=== PATIENT | male | born 1965 | race Caucasian/White ===

== ENCOUNTER 2016-07-21 20:46 | Emergency (ER) | payer MEDICAID ==
[2016-07-21] MEDS ORDERED: NS 1,000 ML IV ONE (20:52)
--- NOTE | 2016-07-21 20:54 | EDPHY ---
H & P HPI/ROS: HPI CHIEF COMPLAINT: Seizure from [facility] HISTORY OF PRESENT ILLNESS: This patient very pleasant 51-year-old male, significant past medical history for liver disease, has had paracentesis in the past and does take lactulose, lives at [facility], he presents emergency room by EMS after he had a witnessed generalized tonic-clonic seizure by staff there. According to EMS he had a witnessed generalized tonic-clonic seizure unclear exactly how long this lasted. After the seizure. The staff thought he was unresponsive with no pulse and not breathing. They decided to start CPR on him. They did 2 chest compressions and with each, chest compression he moaned. Past Medical History: Liver disease, patient tells me stage III liver disease from alcoholism, hypertension denies hep C, gout Past Surgical History: Denies recent surgical history Social History: Lives at [facility] Family History: Unknown ms is otherwise negative aside from elements mentioned in the history of present illness. Exam Constitutional triage nursing summary reviewed, vital signs reviewed, awake/ alert. Eyes normal conjunctivae and sclera, EOMI, PERRLA. HENT oropharynx: Right lateral tongue very small laceration does not need suture repair, normal inspection, atraumatic, moist mucus membranes, no epistaxis, neck supple/ no meningismus, no raccoon eyes. Respiratory clear to auscultation bilaterally, normal breath sounds, no respiratory distress, no wheezing. Cardiovascular rate normal, regular rhythm, no murmur, no edema, distal pulses normal. Gastrointestinal soft, non-tender, no rebound, no guarding, normal bowel sounds, no distension, no pulsatile mass. Genitourinary no CVA tenderness. Musculoskeletal no midline vertebral tenderness, full range of motion, no calf swelling, no tenderness of extremities, no meningismus, good pulses, neurovascularly intact. Skin pink, warm, & dry, no rash, skin atraumatic. Neurologic awake, alert and oriented x 3, AAOx3, moves all 4 extremities equally, motor intact, sensory intact, CN II-XII intact, normal cerebellar, normal vision, normal speech. Psychiatric normal mood/affect. Heme/Lymph/Immune no lymphadenopathy. Differential Diagnosis: Includes but is not limited to in a particular order, seizure, generalized tonic-clonic seizure, infection, electrolyte disturbance, benzo withdrawal, doubt cardiopulmonary arrest given that the patient was moaning during each episode of chest compression. There were only 2 chest compressions given. Most likely cause was seizure with postictal state. Medical Decision Making; full stove polisher, IV establishment, check blood work, check electrolytes and ammonia level, plan for CT scan head due to no history of seizures. Re-evaluation: CT scan of the head without IV contrast The results of the study are negative for acute intracranial abnormality The study was read by Dr. Charlene Moon I viewed the images myself on the PACS system. ED x-ray chest one view: Negative for acute cardiopulmonary disease. 2141: Re-evaluation this time this patient is resting comfortably has no medical complaints. States he feels fine is requesting be discharged back to [facility]. I did review his blood work is ammonia level slightly elevated 60s however does not appear to be impacting his mental state as he is comp, cooperative and speaks coherently with me. Has no asterixis. Does not appear jaundice. Vital signs are stable without fever here. Patient does tell me that he got a cold shower this staff sure he began to have rigors and chills from the cold shower he states he has never had a seizure before does not believe he had a seizure this evening. No reported postictal state. Staff did do only 2 chest compressions on his chest which he moan to with told them to stop. No indication he had a cardiac pulmonary arrest. Troponin negative. Blood work reviewed shows anemia, mild leukocytosis, elevated ammonia level. No evidence of GI bleed. Patient requesting discharge back to home. His CT scan has been reviewed chest x-ray reviewed, blood work reviewed. Potassium is noted to be slightly low he is on spironolactone a potassium-sparing diuretic. Did receive 40 mEq here. Recommend recheck of his potassium by his primary care doctor at [facility] in 48 hours. Return if any change in mental status or worsening symptoms includes new seizures. EKG interpretation by me on record in [employer] system. Impression time of EKG 2145, sinus tachycardia rate of 106 QT interval 376. No acute ischemia changes present. 2246: Re-evaluation at this time patient resting comfortably no acute distress has no complaints he is again requesting go back to [facility]. He tells me does not walk. Since arriving at [facility] 5 days ago for alcoholism, he states he has been in bed. I found nothing acute in terms of cause of his seizure. His noted is potassium slightly low, ammonia slightly high recommend follow up with his primary care doctor Paul Jorgensen. Source: Patient, EMS Constitutional: Initial Vital Signs Temperature (C) 36.7 C 07/21/16 20:57 Heart Rate 111 H 07/21/16 20:57 Respiratory Rate 20 07/21/16 20:57 Blood Pressure 115/66 07/21/16 20:57 O2 Sat (%) 93 07/21/16 20:57 O2 Delivery Mode Room Air Allergies/Adverse Reactions: No Known Allergies Allergy (Unverified 07/21/16 20:53) Home Medications: Medication Instructions Recorded ALPRAZolam 07/21/16 Allopurinol 07/21/16 FOLIC ACID 07/21/16 LACTULOSE 07/21/16 Lactobacillus Acidophilus 07/21/16 Lasix 07/21/16 Nicotine Gum 07/21/16 PRILOSEC 07/21/16 Potassium Chloride 07/21/16 Propranolol HCl 07/21/16 Pyridium 07/21/16 Spironolactone 07/21/16 Medical Decision Making - Diagnostics Imaging Results: Imaging Impressions Head CT 07/21/16 20:52 Impression: Atrophy and microvascular ischemic disease, moderate amount for patient's relatively young age. Nothing acute intracranially. Findings and recommendations discussed with Errol Pugh MD at 2120 hour, . Final report concurs with initial preliminary interpretation. - Data Points Laboratory Results: Laboratory Results 07/21/16 20:55 07/21/16 20:55 07/21/16 07/21/16 07/21/16 20:55 20:55 20:55 WBC RBC Hgb Hct MCV MCH MCHC RDW Plt Count MPV Neut % (Auto) Lymph % (Auto) [place] % (Auto) Eos % (Auto) Baso % (Auto) Nucleat RBC Rel Count Absolute Neuts (auto) Absolute Lymphs (auto) Absolute Monos (auto) Absolute Eos (auto) Absolute Basos (auto) Absolute Nucleated RBC Immature Gran % Immature Gran # PT 18.0 SEC H SEC (12.0-15.0) INR 1.49 H (0.83-1.16) APTT 30.3 SEC SEC (23.0-38.0) Sodium 132 mEq/L L mEq/L (134-144) Potassium 2.9 mEq/L L mEq/L (3.5-5.2) Chloride 93 mEq/L L mEq/L (97-110) Carbon Dioxide 18 mEq/l L mEq/l (22-31) Anion Gap 21 mEq/L H mEq/L (8-16) BUN 10 mg/dL mg/dL (7-23) Creatinine 0.6 mg/dL L mg/dL (0.7-1.3) Estimated GFR > 60 Glucose 82 mg/dL mg/dL (70-100) Calcium 9.3 mg/dL mg/dL (8.5-10.4) Magnesium 1.7 mg/dL mg/dL (1.6-2.3) Total Bilirubin 2.4 mg/dL H mg/dL (0.1-1.4) Conjugated Bilirubin 1.2 mg/dL H mg/dL (0.0-0.5) Unconjugated Bilirubin 1.2 mg/dL H mg/dL (0.0-1.1) AST 62 IU/L H IU/L (17-59) ALT 61 IU/L IU/L (21-72) Alkaline Phosphatase 259 IU/L H IU/L (38-126) Ammonia 64.0 uMOL/L H uMOL/L (9.0-30.0) Creatine Kinase 24 IU/L IU/L (0-224) CK-MB (CK-2) Fraction 0.43 ng/mL ng/mL (0-3.19) Troponin I < 0.012 ng/mL ng/mL (0-0.034) NT-Pro-B Natriuret Pep 115 pg/mL pg/mL (0-125) Total Protein 7.1 g/dL g/dL (6.3-8.2) Albumin 4.2 g/dL g/dL (3.5-5.0) Lipase 162.0 IU/L IU/L (23-300) 07/21/16 20:55 WBC 13.11 10^3/uL H 10^3/uL (3.80-9.50) RBC 2.70 10^6/uL L 10^6/uL (4.40-6.38) Hgb 9.9 g/dL L g/dL (13.7-17.5) Hct 29.4 % L % (40.0-51.0) MCV 108.9 fL H fL (81.5-99.8) MCH 36.7 pg H pg (27.9-34.1) MCHC 33.7 g/dL g/dL (32.4-36.7) RDW 17.0 % H % (11.5-15.2) Plt Count 192 10^3/uL 10^3/uL (150-400) MPV 9.5 fL fL (8.7-11.7) Neut % (Auto) 78.9 % H % (39.3-74.2) Lymph % (Auto) 13.0 % L % (15.0-45.0) [place] % (Auto) 6.3 % % (4.5-13.0) Eos % (Auto) 1.1 % % (0.6-7.6) Baso % (Auto) 0.1 % L % (0.3-1.7) Nucleat RBC Rel Count 0.0 % % (0.0-0.2) Absolute Neuts (auto) 10.36 10^3/uL H 10^3/uL (1.70-6.50) Absolute Lymphs (auto) 1.70 10^3/uL 10^3/uL (1.00-3.00) Absolute Monos (auto) 0.82 10^3/uL H 10^3/uL (0.30-0.80) Absolute Eos (auto) 0.14 10^3/uL 10^3/uL (0.03-0.40) Absolute Basos (auto) 0.01 10^3/uL L 10^3/uL (0.02-0.10) Absolute Nucleated RBC 0.00 10^3/uL 10^3/uL (0-0.01) Immature Gran % 0.6 % % (0.0-1.1) Immature Gran # 0.08 10^3/uL 10^3/uL (0.00-0.10) PT INR APTT Sodium Potassium Chloride Carbon Dioxide Anion Gap BUN Creatinine Estimated GFR Glucose Calcium Magnesium Total Bilirubin Conjugated Bilirubin Unconjugated Bilirubin AST ALT Alkaline Phosphatase Ammonia Creatine Kinase CK-MB (CK-2) Fraction Troponin I NT-Pro-B Natriuret Pep Total Protein Albumin Lipase Medications Given: Discontinued Medications Sodium Chloride (Ns) 1,000 mls @ 0 mls/hr IV ONCE ONE PRN Reason: Wide Open Stop: 07/21/16 20:53 Last Admin: 07/21/16 22:15 Dose: 1,000 mls Potassium Chloride (Klor Packets) 40 meq PO EDNOW ONE Stop: 07/21/16 21:38 Last Admin: 07/21/16 22:15 Dose: 40 meq Departure - Departure Disposition: Home, Routine, Self-Care Clinical Impression: Seizure Condition: Good Instructions: New-Onset Seizure in Adults (ED) Additional Instructions: 1. It Is unclear if he truly had a seizure this evening. 2. If you have a 2nd seizure at the facility recommend return emergency room for further evaluation. 3. Your blood work shows a mild anemia your ammonia level was 64. Your potassium level was slightly low. 4. Please have her doctor recheck her potassium in 48 hours. I did give you some potassium here and you are on a potassium-sparing diuretic. Referrals: ANAHI ANDERSON [Primary Care Provider] - As per Instructions
[2016-07-21 21:02] VITALS: TEMP 98.1
[2016-07-21 21:06] LABS: % IMMATURE GRANULYOCYTES 0.6 % (0.0-1.1); ABSOLUTE IMMATURE GRANULOCYTES 0.08 10^3/uL (0.00-0.10); ADD DIFF? NO; ADD MORPH? NO; ADD SCAN? NO; ATYPICAL LYMPHOCYTE FLAG 30 (0-99); FRAGMENT RBC FLAG 0 (0-99); HEMATOCRIT 29.4 % (40.0-51.0); HEMOGLOBIN 9.9 g/dL (13.7-17.5); LEFT SHIFT FLG 0 (0-99); LIPEMIA HEMOLYSIS FLAG 80 (0-99); MEAN CELL HEMOGLOBIN 36.7 pg (27.9-34.1); MEAN CELL HEMOGLOBIN CONCENTR. 33.7 g/dL (32.4-36.7); MEAN CELL VOLUME 108.9 fL (81.5-99.8); MEAN PLATELET VOLUME 9.5 fL (8.7-11.7); PLATELET CLUMPS FLAG 0 (0-99); PLATELET COUNT 192 10^3/uL (150-400)
[2016-07-21 21:16] LABS: INR 1.49 (0.83-1.16)
[2016-07-21 21:17] LABS: APTT 30.3 SEC (23.0-38.0)
[2016-07-21 21:19] LABS: ALANINE AMINOTRANSFERASE 61 IU/L (21-72); ALBUMIN 4.2 g/dL (3.5-5.0); ALKALINE PHOSPHATASE 259 IU/L (38-126); ANION GAP 21 mEq/L (8-16); BILIRUBIN,TOTAL 2.4 mg/dL (0.1-1.4); BILIRUBIN-CONJUGATED 1.2 mg/dL (0.0-0.5); BILIRUBIN-UNCONJUGATED 1.2 mg/dL (0.0-1.1); CALCIUM 9.3 mg/dL (8.5-10.4); CARBON DIOXIDE 18 mEq/l (22-31); CHLORIDE 93 mEq/L (97-110); CREATININE 0.6 mg/dL (0.7-1.3); GLOMERULAR FILTRATION RATE > 60; GLUCOSE 82 mg/dL (70-100); MAGNESIUM 1.7 mg/dL (1.6-2.3); POTASSIUM 2.9 mEq/L (3.5-5.2); SODIUM 132 mEq/L (134-144); TOTAL PROTEIN 7.1 g/dL (6.3-8.2)
[2016-07-21 21:30] LABS: CREATINE KINASE-MB FRACTION 0.43 ng/mL (0-3.19); TROPONIN I < 0.012 ng/mL (0-0.034)
[2016-07-21] MEDS ORDERED: POTASSIUM CL 20 MEQ PKT PO ONE (21:37)
--- NOTE | 2016-07-21 21:48 | CPEKG ---
Heart Rate: 106 RR Interval: 566 P-R Interval: 160 QRSD Interval: 76 QT Interval: 376 QTC Interval: 500 P [place]: 54 QRS [place]: 39 T Wave [place]: 19 EKG Severity - BORDERLINE ECG - EKG Impression: SINUS TACHYCARDIA EKG Impression: BORDERLINE PROLONGED QT INTERVAL Electronically Signed By: Errol Pugh 21-Jul-2016 23:20:31
[2016-07-21 22:27] LABS: ASPARTATE AMINOTRANSFERASE 62 IU/L (17-59)
[2016-07-22 00:09] VITALS: PULSE 89
[2016-07-22 00:10] VITALS: BP 111/68; RESP 18; O2SAT 93
== END 2016-07-22 01:21 | disposition home or self-care (01) ==
DX: R56.9 Unspecified convulsions (principal); I10 Essential (primary) hypertension

== ENCOUNTER 2016-08-01 16:31 | Emergency (ER) | payer MEDICAID ==
[2016-08-01 16:42] VITALS: RESP 16
--- NOTE | 2016-08-01 16:57 | EDPHY ---
H & P Stated Complaint: fall out wheelchair hit back of head, 3cm laceration, no loc Time Seen by Provider: 08/01/16 16:41 HPI/ROS: CHIEF COMPLAINT: head injury fell from wheelchair HISTORY OF PRESENT ILLNESS: 51-year-old male history of days 3 liver disease, hypertension, lives at [facility], moves around primarily via wheelchair, states that the brakes on his wheelchair did not engage and he rolled backward a short distance, tipped backwards and impacted the occiput of his head against the ground. No amnesia. No loss of consciousness. No headache PRIMARY CARE PROVIDER:Dr. Zeb Garcia REVIEW OF SYSTEMS: A ten point review of systems was performed and is negative with the exception of the items mentioned in the HPI PAST MEDICAL/SURGICAL HISTORY: Stage III liver disease secondary to alcoholism. Hypertension. SOCIAL HISTORY: Lives at [facility] PHYSICAL EXAM 1) GENERAL: Well-developed, well-nourished, alert and oriented. Appears to be in no acute distress. Answering questions appropriately. GCS 15 2) HEAD: Normocephalic, 3 cm occipital scalp laceration 3) HEENT: Pupils equal, round, reactive to light bilaterally. Negative [place]. Nasopharynx, oropharynx, clear. No deformity or angulation of nose. No septal hematoma. No rhinorrhea. No oral trauma. Ears bilaterally with normal tympanic membranes. No hemotympanum. No fluid or blood in the external auditory canal. No raccoon eyes. No Lim sign. . 4) NECK: No cervical collar is on. Posterior cervical spine is nontender, no stepoff, no effusion. Full range of motion which does not elicit any midline cervical spine pain, no posterior midline tenderness, no step-off. 5) LUNGS: Clear to auscultation bilaterally, no wheezes. 6) HEART: Regular rate and rhythm, 7) ABDOMEN: No guarding, no rebound, no focal tenderness, no peritoneal signs, no signs of trauma, no ecchymosis 8) MUSCULOSKELETAL: Moving all extremities, no focal areas of tenderness, no obvious trauma. 9) BACK:No midline vertebral tenderness, no fluctuance, no step-off, no obvious trauma, no visual or palpable abnormality. 10) SKIN: No laceration. No abrasion DIFFERENTIAL DIAGNOSIS: Not necessarily in any particular order, my differential diagnosis includes, but is not limited to, concussion, skull fracture, intraparenchymal contusion, subarachnoid, subdural and epidural hematoma. The patient understands that this diagnosis is provisional and can never be 100% accurate. - Personal History Current Tetanus Diphtheria and Acellular Pertussis (TDAP): Yes - Medical/Surgical History Hx Asthma: No Hx Chronic Respiratory Disease: No Hx Diabetes: No Hx Cardiac Disease: Yes Hx Renal Disease: No Hx Cirrhosis: No Hx Alcoholism: No Hx HIV/AIDS: No Hx Splenectomy or Spleen Trauma: No Other PMH: cognitive impairment, ?CHF - Social History Smoking Status: Unknown if ever smoked Constitutional: Initial Vital Signs Temperature (C) 37 C 08/01/16 16:39 Heart Rate 84 08/01/16 16:39 Respiratory Rate 16 08/01/16 16:39 Blood Pressure 106/74 08/01/16 16:39 O2 Sat (%) 97 08/01/16 16:39 O2 Delivery Mode Room Air Allergies/Adverse Reactions: No Known Allergies Allergy (Unverified 07/21/16 20:53) Home Medications: Medication Instructions Recorded ALPRAZolam 07/21/16 Allopurinol 07/21/16 FOLIC ACID 07/21/16 LACTULOSE 07/21/16 Lactobacillus Acidophilus 07/21/16 Lasix 07/21/16 Nicotine Gum 07/21/16 PRILOSEC 07/21/16 Potassium Chloride 07/21/16 Propranolol HCl 07/21/16 Pyridium 07/21/16 Spironolactone 07/21/16 Medical Decision Making Procedures: Procedure: Laceration repair. I explained the indications, risks and benefits for both laceration repair and anesthetic administration. Verbal consent was obtained from the patient . The laceration on the occipital scalp was anesthetized using 0.5% bupivicaine with epinephrine . After anesthetic administered the patient was observed for a period of time and had no apparent adverse effects. The wound was cleaned, prepped, draped in normal sterile fashion and explored to its base. No foreign body seen, no foreign bodies palpated. There were no deep structures involved. No galea defects. The wound was repaired with 6 roge. The wound repair was simple. The procedure was performed by myself. Patient has been informed that scarring will occur, although efforts have been made to minimize this. ED Course/Re-evaluation: Head CT ordered in this little patient for trauma for the following indication: anticoagulated with elevated INR obtained earlier this month likely secondary to history of liver disease. Care and management in consultation with secondary supervising physician Dr Ramires . 5:27 p.m.: CT head is negative for posttraumatic sequelae per Radiology interpretation Patient was re-evaluated with serial examinations. Discussed his head imaging. He is answering questions appropriately. He will need to return to the ER in 7 days for staple removal. Usual and customary head injury precautions instructions provided. Departure - Departure Disposition: Home, Routine, Self-Care Clinical Impression: Uses wheelchair Fall from wheelchair Qualifiers: Encounter type: initial encounter Qualified Code(s): W05.0XXA - Fall from non- moving wheelchair, initial encounter Occipital scalp laceration Qualifiers: Encounter type: initial encounter Qualified Code(s): S01.01XA - Laceration without foreign body of scalp, initial encounter Head injury due to trauma Qualifiers: Encounter type: initial encounter Qualified Code(s): S09.90XA - Unspecified injury of head, initial encounter Condition: Good Instructions: Laceration (ED), Head Injury (ED) Additional Instructions: ALTHOUGH THERE IS NO EVIDENCE OF SERIOUS HEAD INJURY AT THIS TIME, DELAYED SIGNS CAN APPEAR 24 TO 48 HOURS AFTER INJURY. WE RECOMMEND THAT YOU DESIGNATE A FRIEND OR FAMILY MEMBER TO OBSERVE YOU OVER THE NEXT FEW DAYS TO ENSURE THAT YOUR CONDITION IS PROGRESSING NORMALLY. PLEASE RETURN TO THE EMERGENCY DEPARTMENT (ED) IMMEDIATELY IF YOU HAVE INCREASED HEADACHE, PERSISTENT HEADACHE , VOMITING, WEAKNESS, CONFUSION OR VISUAL PROBLEMS. Return to the emergency department in 7 days for staple removal Referrals: ZEB ANDERSON [Primary Care Provider] - 1-2 days without fail
[2016-08-01 17:47] VITALS: TEMP 98.2
[2016-08-01 17:55] VITALS: BP 103/77; PULSE 97; O2SAT 98
== END 2016-08-01 18:35 | disposition home or self-care (01) ==
LOC: EDUNIT#
PROC: 0HQ0XZZ Repair Scalp Skin, External Approach (ICD-10-PCS; principal; 2016-08-01)
DX: S01.01XA Laceration without foreign body of scalp, initial encounter (principal); I50.9 Heart failure, unspecified; I10 Essential (primary) hypertension; W05.0XXA Fall from non-moving wheelchair, initial encounter